=== PATIENT | male | born 1965 | race Caucasian/White ===

== ENCOUNTER 2018-12-10 16:55 | Emergency (ER) | payer MEDICARE ==
[2018-12-10 17:35] LABS: #Basophils 0.1 thou/uL (0.0-0.2); #Eosinphils 0.3 thou/uL (0.0-0.7); #Lymphocytes 2.7 thou/uL (1.20-3.40); #Monocytes 0.5 thou/uL (0.11-0.59); #Neutrophils 3.8 thou/uL (1.40-6.50); %Basophils 1.3 % (0.0-1.0); %Lymphocytes 36.5 % (21.0-51.0); %Monocytes 6.5 % (0.0-10.0); %Neutrophils 51.7 % (42.0-75.0); Hemoglobin 15.9 g/dL (14.0-18.0); Mean Corpuscular HGB CONC 33.5 g/dL (32.0-36.0); Mean Corpuscular Hemoglobin 32.3 pg (27.0-31.0); Mean Corpuscular Volume 96.5 fL (78.0-98.0); Mean Platelet Volume 8.5 fL (7.4-10.4); Platelet Count 161 thou/uL (130-400); RBC Distribution Width 11.3 % (11.5-14.5); Red Blood Cell (RBC) Count 4.91 mill/uL (4.70-6.10); White Blood Cell (WBC) Count 7.3 thou/uL (4.8-10.8)
[2018-12-10 17:43] LABS: INR-International Normal Ratio 1.1; PTT 26.2 SEC (22.9-36.1); Prothrombin Time 13.8 SEC (12.0-14.7)
[2018-12-10 17:52] LABS: ALT (SGPT) 18 U/L (8-55); AST (SGOT) 18 U/L (5-34); Albumin 4.4 g/dL (3.5-5.0); Alkaline Phosphatase 69 U/L (40-110); Anion Gap 15 mmol/L (10-20); BUN (Urea Nitrogen) 12 mg/dL (8.4-25.7); Bilirubin, Total 0.8 mg/dL (0.2-1.2); Calc. Creatinine Clearance 0 mL/min (70-130); Calcium 9.7 mg/dL (7.8-10.44); Carbon Dioxide 27 mmol/L (22-29); Chloride 104 mmol/L (98-107); Estimated GFR-MDRD 67; Globulin 3.3 g/dL (2.4-3.5); Glucose 146 mg/dL (70-105); Potassium 4.7 mmol/L (3.5-5.1); Protein, Total 7.7 g/dL (6.0-8.3); Sodium 141 mmol/L (136-145)
--- NOTE | 2018-12-10 21:10 | RAD ---
PORTABLE CHEST: Date: 12-10-18 FINDINGS: An AP portable chest at 1719 shows mild cardiomegaly but no clear congestive change. An AICD is in pl de in an apparently normal position. No acute infiltrate or effusion was seen. The left base is seen less well than elsewhere. There appears to be a calcified granuloma in the right upper lobe. IMPRESSION: Mild cardiomegaly. POS: HOME
== END 2018-12-10 19:34 | disposition short-term general hospital (02) ==
LOC: BURERS 16:55
DX: T82.118A Breakdown (mechanical) of other cardiac electronic device, initial encounter (principal); I47.2 Ventricular tachycardia; I10 Essential (primary) hypertension; E78.00 Pure hypercholesterolemia, unspecified; E11.9 Type 2 diabetes mellitus without complications; I25.2 Old myocardial infarction; Z87.891 Personal history of nicotine dependence
CPT/HCPCS: 36415; 71045; 80053; 84484; 85025; 85610; 85730; 93005

== ENCOUNTER 2019-02-06 12:01 | Inpatient (IN) | payer MEDICARE ==
[2019-02-06] MEDS ORDERED: Bisacodyl 5 MG TAB PO PRN (20:17)
[2019-02-06] MEDS ORDERED: Acetaminophen 325 MG TAB PO PRN (20:17)
[2019-02-06] MEDS ORDERED: Senokot S 8.6-50 MG TAB PO PRN (20:17)
[2019-02-06] MEDS ORDERED: Acetaminophen 500 MG TAB PO PRN (20:19)
[2019-02-06] MEDS: Atorvastatin Calcium 40 MG TAB PO SCH (21:04)
[2019-02-06] MEDS: Carvedilol 12.5 MG TAB PO SCH (21:04)
[2019-02-06] MEDS: Famotidine 20 MG TAB PO SCH (21:06)
[2019-02-06] MEDS: Amiodarone 200 MG TAB PO SCH (21:06)
[2019-02-06] MEDS: Lisinopril 10 MG TAB PO SCH (21:06)
[2019-02-07] MEDS ORDERED: FLU VACC QS2019-20(6MOS UP)/PF 60 MCG/0.5 ML SYRINGE IM ONE (09:00)
[2019-02-07] MEDS: Amiodarone 200 MG TAB PO SCH ×2 (09:09→20:51)
[2019-02-07] MEDS: Lisinopril 10 MG TAB PO SCH ×2 (09:10→20:51)
[2019-02-07] MEDS: Famotidine 20 MG TAB PO SCH ×2 (09:10→20:51)
[2019-02-07] MEDS: Carvedilol 12.5 MG TAB PO SCH ×2 (09:10→20:51)
[2019-02-07] MEDS: Clopidogrel Bisulfate 75 MG TAB PO SCH (09:10)
[2019-02-07] MEDS: Aspirin 325 mg Enteric Coated Tablet PO SCH (09:11)
[2019-02-07] MEDS: Atorvastatin Calcium 40 MG TAB PO SCH (20:51)
[2019-02-08] MEDS: Aspirin 325 mg Enteric Coated Tablet PO SCH (08:41)
[2019-02-08] MEDS: Carvedilol 12.5 MG TAB PO SCH ×2 (08:42→20:28)
[2019-02-08] MEDS: Clopidogrel Bisulfate 75 MG TAB PO SCH (08:42)
[2019-02-08] MEDS: Famotidine 20 MG TAB PO SCH ×2 (08:43→20:27)
[2019-02-08] MEDS: Lisinopril 10 MG TAB PO SCH ×2 (08:43→20:27)
[2019-02-08] MEDS: Amiodarone 200 MG TAB PO SCH ×2 (08:43→20:27)
[2019-02-08] MEDS: Atorvastatin Calcium 40 MG TAB PO SCH (20:27)
[2019-02-09] MEDS: Amiodarone 200 MG TAB PO SCH ×2 (09:38→21:17)
[2019-02-09] MEDS: Clopidogrel Bisulfate 75 MG TAB PO SCH (09:38)
[2019-02-09] MEDS: Famotidine 20 MG TAB PO SCH ×2 (09:38→21:17)
[2019-02-09] MEDS: Carvedilol 12.5 MG TAB PO SCH ×2 (09:39→21:17)
[2019-02-09] MEDS: Lisinopril 10 MG TAB PO SCH ×2 (09:39→21:16)
[2019-02-09] MEDS: Aspirin 325 mg Enteric Coated Tablet PO SCH (09:39)
[2019-02-09] MEDS: Atorvastatin Calcium 40 MG TAB PO SCH (21:16)
[2019-02-10] MEDS: Famotidine 20 MG TAB PO SCH ×2 (08:47→20:25)
[2019-02-10] MEDS: Aspirin 325 mg Enteric Coated Tablet PO SCH (08:47)
[2019-02-10] MEDS: Amiodarone 200 MG TAB PO SCH ×2 (08:47→20:25)
[2019-02-10] MEDS: Lisinopril 10 MG TAB PO SCH ×2 (08:48→20:26)
[2019-02-10] MEDS: Clopidogrel Bisulfate 75 MG TAB PO SCH (08:48)
[2019-02-10] MEDS: Carvedilol 12.5 MG TAB PO SCH ×2 (08:48→20:25)
[2019-02-10 16:23] VITALS: BMI 30.1
[2019-02-10] MEDS: Atorvastatin Calcium 40 MG TAB PO SCH (20:25)
[2019-02-11] MEDS: Amiodarone 200 MG TAB PO SCH ×2 (08:01→20:53)
[2019-02-11] MEDS: Lisinopril 10 MG TAB PO SCH ×2 (08:01→20:53)
[2019-02-11] MEDS: Carvedilol 12.5 MG TAB PO SCH ×2 (08:01→20:54)
[2019-02-11] MEDS: Clopidogrel Bisulfate 75 MG TAB PO SCH (08:02)
[2019-02-11] MEDS: Famotidine 20 MG TAB PO SCH ×2 (08:02→20:54)
[2019-02-11] MEDS: Aspirin 325 mg Enteric Coated Tablet PO SCH (08:02)
[2019-02-11] MEDS: Atorvastatin Calcium 40 MG TAB PO SCH (20:53)
[2019-02-12] MEDS: Lisinopril 10 MG TAB PO SCH ×2 (08:41→20:39)
[2019-02-12] MEDS: Aspirin 325 mg Enteric Coated Tablet PO SCH (08:41)
[2019-02-12] MEDS: Famotidine 20 MG TAB PO SCH ×2 (08:42→20:39)
[2019-02-12] MEDS: Amiodarone 200 MG TAB PO SCH ×2 (08:42→20:39)
[2019-02-12] MEDS: Clopidogrel Bisulfate 75 MG TAB PO SCH (08:43)
[2019-02-12] MEDS: Carvedilol 12.5 MG TAB PO SCH ×2 (08:43→20:39)
[2019-02-12] MEDS: Atorvastatin Calcium 40 MG TAB PO SCH (20:38)
[2019-02-13] MEDS: Amiodarone 200 MG TAB PO SCH ×2 (08:30→20:43)
[2019-02-13] MEDS: Clopidogrel Bisulfate 75 MG TAB PO SCH (08:30)
[2019-02-13] MEDS: Carvedilol 12.5 MG TAB PO SCH ×2 (08:30→20:43)
[2019-02-13] MEDS: Lisinopril 10 MG TAB PO SCH ×2 (08:30→20:43)
[2019-02-13] MEDS: Famotidine 20 MG TAB PO SCH ×2 (08:30→20:43)
[2019-02-13] MEDS: Aspirin 325 mg Enteric Coated Tablet PO SCH (08:30)
[2019-02-13] MEDS: Atorvastatin Calcium 40 MG TAB PO SCH (20:43)
[2019-02-14 05:57] VITALS: TEMP 98.6
[2019-02-14] MEDS: Aspirin 325 mg Enteric Coated Tablet PO SCH (08:36)
[2019-02-14] MEDS: Famotidine 20 MG TAB PO SCH (08:37)
[2019-02-14] MEDS: Clopidogrel Bisulfate 75 MG TAB PO SCH (08:37)
[2019-02-14] MEDS: Carvedilol 12.5 MG TAB PO SCH (08:37)
[2019-02-14] MEDS: Lisinopril 10 MG TAB PO SCH (08:37)
[2019-02-14 08:38] VITALS: BP 145/89
[2019-02-14] MEDS ORDERED: Amiodarone 200 MG TAB PO SCH (09:00)
--- NOTE | 2019-02-15 13:04 | DIS ---
DATE OF ADMISSION: 02/06/2019 DATE OF DISCHARGE: 02/14/2019 ADMISSION DIAGNOSES: 1. Debilitation and weakness. 2. Status post tachyarrhythmia, ventricular tachycardia, status post automated implantable cardioverter-defibrillator discharge. 3. Ischemic cardiomyopathy. 4. Coronary artery disease. 5. History of poor medication compliance. The patient's discharge date, same as above with overall improvement. BRIEF SUMMARY OF HOSPITAL COURSE: The patient is a 53-year-old white male who was admitted [facility] 02/06/2019 after an acute admission to [facility] on 01/31/2019 after multiple AICD discharges due to tachyarrhythmia, ventricular type. During his hospital stay he tolerated physical therapy and occupational therapy. His blood sugars are well controlled with diet. The patient was given education about diabetes management as well as management of a low salt diet and all his medications. The patient was able and strong enough to the point where he was able to be discharged from the facility and discharge plans were made to be discharged to [facility] under the care of Dr. Yue Solis. DISCHARGE MEDICATIONS: 1. Aspirin 325 mg daily. 2. Coreg 12.5 mg p.o. b.i.d. 3. Plavix 75 mg daily. 4. Pepcid 20 mg b.i.d. 5. Zestril 10 mg p.o. b.i.d. 6. Lipitor 20 mg p.o. at bedtime. 7. Amiodarone, patient will be taking 200 mg p.o. b.i.d. x14 days, then 200 mg daily. ACTIVITY: Will be as tolerated. The patient will likely need further physical therapy and occupational therapy. DISCHARGE DIET: Low-salt, heart healthy diet was recommended. FOLLOWUP: Patient will be under the care of Dr. Yue Solis. Will likely need to be followed up at the [facility] as well as with his hosiery looper within 14 days. Job ID: [id number] MTDD
--- NOTE | 2019-02-16 12:31 | HP ---
CHIEF COMPLAINT: Cause for transfer and admission from [facility] to [facility] was debilitation and weakness, status post ventricular tachyarrhythmia. HISTORY OF PRESENT ILLNESS: The patient is a 53-year-old white male with a known history of severe ischemic cardiomyopathy with ejection fraction of less than 20%, AICD placement, and chronic systolic heart failure with a history of noncompliance, who was admitted to [facility] on 01/31/2019 after having recurrent AICD discharges. The patient was found to have ventricular tachycardia. He was started on amiodarone infusion. He had some demand ischemia and tachyarrhythmia and began to improve during his hospital stay, but was found to be significantly weak and debilitated, requiring physical therapy and occupational therapy. In addition, the patient needed further nursing care related to his history of noncompliance and needed to be weaned on his amiodarone. Thus, he was transferred from [facility] to [facility] on February 06, 2019. PAST MEDICAL HISTORY: Significant for: 1. History of ischemic cardiomyopathy treated with medications only. The patient is not a surgical candidate due to his history of poor compliance. 2. Ventricular tachyarrhythmias, status post AICD placement. 3. History of chronic systolic heart failure. 4. History of noncompliance with treatment. 5. Diabetes, type 2, diet controlled. 6. Hypertension. 7. Coronary artery disease. 8. History of drug abuse, mainly with marijuana. PAST SURGICAL HISTORY: Significant for AICD generator placement and status post pacemaker and AICD placement. MEDICATIONS: Include: 1. Aspirin 81 mg daily. 2. Lipitor 40 mg q.h.s. 3. Coreg 12.5 mg p.o. b.i.d. 4. Plavix 75 mg daily. 5. Pepcid 20 mg p.o. b.i.d. 6. Lisinopril 10 mg p.o. b.i.d. 7. Amiodarone is currently at 400 mg b.i.d., will be titrated down to 200 mg b.i.d. for 14 days, then maintenance of 200 mg daily. ALLERGIES: NO KNOWN DRUG ALLERGIES. FAMILY HISTORY: Noncontributory. SOCIAL HISTORY: The patient smoked greater than 110 pack-years, but does not smoke currently. Reports history of marijuana use, but has stopped taking and denies excessive alcohol use. REVIEW OF SYSTEMS: Presently, the patient denies any chest pain or shortness of breath. No fevers, chills, or night sweats. No nausea, vomiting, or diarrhea. No dysuria, hematuria, or change in urinary frequency. No significant weight changes. No URI like symptoms. The patient denies any significant increased back pain and no recent rashes. The patient denies depression at this time. PHYSICAL EXAMINATION: GENERAL: White male, alert, oriented x3, in no apparent distress. VITAL SIGNS: Blood pressure 138/68, respiratory rate was 16, pulse was 82 and regular. HEENT: Atraumatic, normocephalic. TMs are intact. Pupils are equal, round, reactive to light and accommodation. Oropharynx, mucous membranes are moist without exudate, discharge, or lesions. NECK: Supple. No masses palpated. No bruits auscultated. CHEST: Clear to auscultation bilaterally without rales or wheezes. HEART: Regular rate and rhythm without murmurs, rubs, or gallops. ABDOMEN: Soft, nontender, nondistended. No masses are palpated. EXTREMITIES: Show 1+ edema of the ankles bilaterally. Moves all extremities equally. ASSESSMENT: 1. History of ischemic cardiomyopathy with status post ventricular tachyarrhythmia, on amiodarone drip. 2. Coronary artery disease. Medical management. 3. Chronic systolic heart failure. 4. Diabetes mellitus type 2, non-insulin dependent. 5. Hypertension. PLAN: 1. The patient will be admitted to swing bed. We will start physical therapy and occupational therapy due to his weakness. He will also need extensive education training related to diabetes and compliance with amiodarone. Otherwise, he will be readmitted. The patient is a high risk for readmission due to history of noncompliance. On reviewing the patient's chart, there was discussion about long-term placement. He is currently living with his son and [id number] and apparently it is not a good home environment for the patient and he has a history of poor compliance with his medications and diet regimen. 2. DVT prophylaxis. The patient is currently active enough where I do not believe he will need any DVT prophylaxis. 3. Diabetes mellitus. We will monitor this closely. 4. Hypertension, presently controlled. 5. Disposition as above. Possible plan to discharge to long-term care facility. We will discuss with Case Management. Job ID: [id number]
[2019-02-28] MEDS ORDERED: Amiodarone 200 MG TAB PO SCH (09:00)
== END 2019-02-14 15:34 | DRG 309 ==
LOC: BURMED 17:45
PROVIDERS: ADMIT Family Medicine; ATTEND Family Medicine
DX: I47.2 Ventricular tachycardia (principal); I50.22 Chronic systolic (congestive) heart failure; R53.1 Weakness; I11.0 Hypertensive heart disease with heart failure; I25.10 Atherosclerotic heart disease of native coronary artery without angina pectoris; I25.5 Ischemic cardiomyopathy; E11.9 Type 2 diabetes mellitus without complications; Z79.82 Long term (current) use of aspirin; Z79.02 Long term (current) use of antithrombotics/antiplatelets; Z87.891 Personal history of nicotine dependence; Z95.810 Presence of automatic (implantable) cardiac defibrillator; Z91.14 Patient's other noncompliance with medication regimen
CPT/HCPCS: 36416

== ENCOUNTER 2019-02-16 10:14 | Emergency (ER) | payer MEDICARE ==
[2019-02-16] MEDS ORDERED: traMADol HCl 50 MG TAB ONE (11:15)
--- NOTE | 2019-02-16 13:33 | CT ---
CT LUMBAR SPINE: Date: 02/16/[address] of the lumbar spine was done following trauma. Axial slices were acquired, followed by gee nal and sagittal reconstructions. There is a fracture through the superior end plate of L1 vertebral body with slight compression. A fr acture line is seen distinctly through the anterior superior corner of the vertebra. There is no disp lacement of the vertebra itself. All other lumbar elements appeared intact. There was no sign of foca l disc herniation, foraminal stenosis, or central canal stenosis at other levels. The SI joints are s ymmetric, though there is some sclerosis on the sacral side of the right SI joint. The sacrum appears intact throughout the areas scanned. Internally, no hemorrhage was seen in the visible portions of t he abdomen and pelvis. IMPRESSION: Acute compression fracture of the superior end plate of L1. Findings discussed with Dr. Sevilla at 1105 hours on 02/16/19. CODE CR. POS: HOME
== END 2019-02-16 12:46 ==
LOC: BURERS 10:14
DX: S32.019A Unspecified fracture of first lumbar vertebra, initial encounter for closed fracture (principal); E11.9 Type 2 diabetes mellitus without complications; E78.5 Hyperlipidemia, unspecified; E78.00 Pure hypercholesterolemia, unspecified; I11.0 Hypertensive heart disease with heart failure; I50.9 Heart failure, unspecified; I25.2 Old myocardial infarction; Z87.891 Personal history of nicotine dependence; Z79.82 Long term (current) use of aspirin; Z79.899 Other long term (current) drug therapy; W18.2XXA Fall in (into) shower or empty bathtub, initial encounter
CPT/HCPCS: 72131

== ENCOUNTER 2020-06-26 11:36 | Outpatient (CLI) | payer MEDICARE, OTHER | END 2020-06-26 11:37 | disposition home or self-care (01) | LOC: BURRAD 11:36 | PROVIDERS: ATTEND Internal Medicine Cardiovascular Disease | DX: Z92.29 Personal history of other drug therapy (principal) | CPT/HCPCS: 71046 ==

== ENCOUNTER 2021-01-05 06:06 | Outpatient (CLI) | payer MEDICARE, OTHER ==
[2021-01-05 07:45] LABS: ALT (SGPT) 17 U/L (8-55); AST (SGOT) 16 U/L (5-34); Albumin 4.2 g/dL (3.5-5.0); Alkaline Phosphatase 54 U/L (40-110); Bilirubin, Direct 0.3 mg/dL (0.1-0.3); Bilirubin, Total 0.9 mg/dL (0.2-1.2); Protein, Total 7.1 g/dL (6.0-8.3)
[2021-01-05 08:05] LABS: Thyroid Stimulating Hormone 2.1948 uIU/mL (0.35-4.94)
[2021-01-05 11:41] LABS: Free T4 (Free Thyroxine) 1.28 ng/dL (0.70-1.48)
== END 2021-01-05 06:07 | disposition home or self-care (01) ==
LOC: BURMANOR 06:06
PROVIDERS: ATTEND Family Medicine
DX: E78.5 Hyperlipidemia, unspecified (principal); E11.9 Type 2 diabetes mellitus without complications; I11.0 Hypertensive heart disease with heart failure; I50.20 Unspecified systolic (congestive) heart failure; J44.9 Chronic obstructive pulmonary disease, unspecified; F01.50 Vascular dementia, unspecified severity, without behavioral disturbance, psychotic disturbance, mood disturbance, and anxiety
CPT/HCPCS: 36415; 80076; 84439; 84443

== ENCOUNTER 2021-08-06 14:42 | Outpatient (CLI) | payer MEDICARE, MEDICAID | END 2021-08-06 14:43 | disposition home or self-care (01) | LOC: BURRAD 14:42 | PROVIDERS: ATTEND Nurse Practitioner Family | DX: Z51.81 Encounter for therapeutic drug level monitoring (principal); I51.7 Cardiomegaly; Z79.899 Other long term (current) drug therapy | CPT/HCPCS: 71046 ==

== ENCOUNTER 2022-03-03 14:14 | Outpatient (CLI) | payer MEDICARE, OTHER | END 2022-03-03 14:15 | disposition home or self-care (01) | LOC: BURMANOR 14:14 | PROVIDERS: ATTEND Registered Nurse Community Health | DX: M62.50 Muscle wasting and atrophy, not elsewhere classified, unspecified site (principal); M62.81 Muscle weakness (generalized) | CPT/HCPCS: 87804 ==

== ENCOUNTER 2024-02-02 13:21 | Emergency (ER) | payer MEDICARE, OTHER ==
[2024-02-02] MEDS ORDERED: Boostrix 0.5 ML (Tdap) VIAL (>/=7 yrs of age) ONE (13:44)
[2024-02-02] MEDS ORDERED: Lidocaine 1% w/Epinephrine 1:100K 20 ML VIAL ONE (14:32)
== END 2024-02-02 16:16 ==
LOC: BURERS 13:21
DX: S01.01XA Laceration without foreign body of scalp, initial encounter (principal); Z23 Encounter for immunization; W19.XXXA Unspecified fall, initial encounter
CPT/HCPCS: 12002; 70450; 72125; 90471; 90715